=== PATIENT | male | born 1945 | race Caucasian/White ===

== ENCOUNTER → 2016-09-25 | Outpatient (CLI) | payer MEDICARE, OTHER ==
[~2016-09-25] MED LIST: ASPI-482 PO; CONTRAST GIVEN MC PRN; IOHEXOL 240 MG/ML 50ML VIAL. PO ONE; IOHEXOL 300 MG/ML 75 ML VIAL IV ONE
[2016-09-25 09:16] LABS: CREATININE 1.1 mg/dL (0.7-1.3); GFR 65.8
--- NOTE | 2016-09-25 17:58 | RAD ---
CT ABDOMEN AND PELVIS WITH IV CONTRAST History: UMBILICAL HERNIA. Comparison: CT chest dated 02/24/2010. Technique: After administration of oral and intravenous contrast, helical CT of the abdomen and pelvis was performed from the lung bases through the ischial tuberosities. Axial and coronal reconstructions were obtained. 75 mL of Omnipaque 350 were used. Abdomen Findings: The visualized lung bases are clear. Coronary artery calcifications. The liver, spleen, pancreas, gallbladder, and bilateral adrenal glands are normal. Subcentimeter hypoattenuating right renal lesion is too small to characterize but statistically likely represents a simple renal cyst. Bilateral kidneys otherwise enhance symmetrically. There is no focal renal mass. There is no hydronephrosis. Visualized loops of large and small bowel are normal. There is no evidence of bowel obstruction. Appendix is normal in caliber. There is no free fluid. There is no abdominal or retroperitoneal adenopathy. Moderate atherosclerosis of the normal caliber abdominal aorta and its branches. Small fat-containing umbilical hernia. 2.1 cm hernia mouth. Pelvis findings: Urinary bladder is normal. The prostate is enlarged measuring 5.2 cm. There is no free fluid. There is no pelvic or inguinal adenopathy. There is no acute bony abnormality. Moderate multilevel degenerative changes of the visualized spine. Grade 1 retrolisthesis of L5 on S1. IMPRESSION: 1. Small fat-containing umbilical hernia. 2. Subcentimeter hypoattenuating right renal lesion is too small to characterize but statistically likely represents a simple renal cyst. 3. Prostatomegaly. PQRS Compliance Statement: One or more of the following individualized dose reduction techniques were utilized for this examination: 1. Automated exposure control 2. Adjustment of the mA and/or kV according to patient size 3. Use of iterative reconstruction technique
== END | disposition home or self-care (01) ==
LOC: CT 08:10
PROVIDERS: ATTEND Surgery
DX: N40.0 Benign prostatic hyperplasia without lower urinary tract symptoms (principal)
CPT/HCPCS: 36415; 74177; 82565; Q9966; Q9967

== ENCOUNTER → 2016-10-12 | Outpatient (CLI) | payer MEDICARE, OTHER ==
[~2016-10-12] MED LIST changes: +ASPI-493 PO; +ATEN50TA PO; +CALC500T54 PO; +CHOL100013 PO; +CHOL10003 PO; -CONTRAST GIVEN MC PRN; +CYAN10005 PO; +FINA5TAB4 PO; +IBUP100O24 PO; -IOHEXOL 240 MG/ML 50ML VIAL. PO ONE; -IOHEXOL 300 MG/ML 75 ML VIAL IV ONE; +LORA10TA3 PO; +OMEG-113 PO; +OMEP20CA9 PO; +OXYC-323 PO; +TRIA10.8 NS
--- NOTE | 2016-10-12 12:10 | EKG ---
[facility] [address] [place] [address] Test Date: 2016-10-12 Test Time: 11:50:05 Pat Name: CORI DEL CASTILLO Department: Room: Gender: M [employer]: BUZZ : 1945 Requested By: ROSANA CAMEJO Order Number: [id number] Reading MD: Emanuel Brady Measurements Intervals [place] Rate: 58 P: 39 CA: 222 QRS: 2 QRSD: 86 T: 34 QT: 400 QTc: 396 Interpretive Statements SINUS RHYTHM PROLONGED CA INTERVAL ABNORMAL ECG RI6.01 No previous ECG available for comparison Electronically Signed On 10-16-2016 8:53:15 CDT by Emanuel Brady
== END | disposition home or self-care (01) ==
LOC: SURGPAT 10:26
PROVIDERS: ATTEND Surgery
DX: Z01.818 Encounter for other preprocedural examination (principal); K43.9 Ventral hernia without obstruction or gangrene; R94.31 Abnormal electrocardiogram [ECG] [EKG]
CPT/HCPCS: 93005

== ENCOUNTER → 2016-10-17 | Outpatient (CLI) | payer MEDICARE, OTHER ==
--- NOTE | 2016-10-17 09:16 | RAD ---
Chest radiograph 10/17/2016 at 0854 hours Indication: Ventral hernia repair Comparison: Chest radiograph 05/16/2005 Technique: Single frontal view of the chest is provided. Findings: Cardiomediastinal silhouette is borderline enlarged, stable. No pleural effusions, pulmonary vascular congestion or pneumothorax. There is subsegmental atelectasis at the left lung base. Osseous structures are normal. Impression: There is subsegmental atelectasis at the left lung base. Otherwise, the lungs are clear.
== END | disposition home or self-care (01) ==
LOC: RAD 08:27
PROVIDERS: ATTEND Surgery
DX: Z01.818 Encounter for other preprocedural examination (principal); K44.9 Diaphragmatic hernia without obstruction or gangrene; J98.11 Atelectasis
CPT/HCPCS: 71020

== ENCOUNTER 2016-10-19 06:29 | Day surgery (SDC) | payer MEDICARE, OTHER ==
[~2016-10-19] VITALS: Ht 172.7 cm; Wt 102.5 kg
[~2016-10-19 06:29] MED LIST changes: -OXYC-323 PO
[2016-10-19] MEDS ORDERED: ONDANSETRON PF 4 MG/2 ML VIAL. IV PRN (07:00)
[2016-10-19] MEDS ORDERED: fentaNYL PF VIAL 100 MCG/2 ML VIAL IV PRN ×2 (07:00)
[2016-10-19] MEDS ORDERED: IV RINGERS,LACTATED 1000ML 1,000 ML IV SCH (07:00)
[2016-10-19] MEDS ORDERED: HYDROmorphone 2 MG/ML VIAL IV PRN (07:00)
[2016-10-19] MEDS ORDERED: PROCHLORPERAZINE 10 MG/2 ML VIAL. IV PRN (07:00)
[2016-10-19] MEDS ORDERED: LIDOCAINE 1% 1 ML SYRINGE. ID PRN (07:00)
[2016-10-19] MEDS ORDERED: MORPHINE SULFATE 4 MG/ML DISP.SYRIN. IV PRN (07:00)
[2016-10-19] MEDS ORDERED: BUPIVAC MPF-EPI 0.5%-1:200000 10 ML VIAL. ONE ×2 (07:02→09:49)
[2016-10-19] MEDS ORDERED: DESFLURANE 61 TO 120 MINUTES IH ONE (07:42)
[2016-10-19] MEDS ORDERED: ROCURONIUM 100 MG/10 ML VIAL. ONE (07:43)
[2016-10-19] MEDS ORDERED: ONDANSETRON PF 4 MG/2 ML VIAL. ONE (07:43)
[2016-10-19] MEDS ORDERED: PHENYLEPHRINE 10 MG/ML VIAL. ONE (07:43)
[2016-10-19] MEDS ORDERED: GLYCOPYRROLATE 1 MG/5 ML VIAL. ONE (07:43)
[2016-10-19] MEDS ORDERED: fentaNYL PF VIAL 100 MCG/2 ML VIAL ONE ×2 (07:43→09:39)
[2016-10-19] MEDS ORDERED: DEXAMETHASONE SOD PHOS 20 MG/5 ML VIAL. ONE (07:43)
[2016-10-19] MEDS ORDERED: PROPOFOL 20 ML IV ONE (07:43)
[2016-10-19] MEDS ORDERED: LIDOCAINE 2% PF Vial for OR 5 ML VIAL. ONE (07:44)
[2016-10-19] MEDS ORDERED: 0.9 % SODIUM CHLORIDE 50 ML VIAL. IJ ONE (07:44)
[2016-10-19] MEDS ORDERED: NEOSTIGMINE 10 MG/10 ML VIAL. ONE (07:47)
--- NOTE | 2016-10-19 08:20 | PDOC ---
Provider Note Provider Note discussed his codeine allergy. he said it gave him nausea, hallucinations, insomnia. these are side effects, not true allergic reactions. he doesn't recall ever taking oxycodone/percocet. will prescribe percocet post op. ROSANA CAMEJO MD Oct 19, 2016 08:20
[2016-10-19] MEDS ORDERED: OXYC-323 PO (08:22)
--- NOTE | 2016-10-19 10:35 | PDOC ---
BRIEF OPERATIVE NOTE Pre-Op Diagnosis ventral hernia ventral hernia repair with mesh no specimen k carmela smalls ebl 10 ivf 1200 mayco well to rr stable. ROSANA CAMEJO MD Oct 19, 2016 10:35
--- NOTE | 2016-10-19 10:49 | OP ---
DATE OF SURGERY: 10/19/2016 PREOPERATIVE DIAGNOSIS: Ventral hernia. POSTOPERATIVE DIAGNOSIS: Ventral hernia. PROCEDURE: Ventral hernia repair with mesh. SURGEON: Rosana Camejo M.D. ANESTHESIA: General. ESTIMATED BLOOD LOSS: 10 mL. INTRAVENOUS FLUIDS: 1200 mL. SPECIMENS OBTAINED: None. INDICATIONS: The patient is a 71-year-old male who has severe diastasis recti in the epigastric region as well as a ventral hernia located just above his umbilicus. He is here for repair. FINDINGS: He had one primary hernia above the level of the umbilicus measuring approximately 3 x 4 cm. Just above that with a fascial bridge, that was only 1-2 mm, was a separate smaller hernia. The fascial bridge was divided. Ultimately after clearing back the fascia to get tissue, his hernia defect measured 4 x 4 cm. Specifically in the midline portion, his fascia is severely thinned and affected by diastasis recti. An 11.4 x 11.[address] hernia patch was then used to close the hernia defect. PROCEDURE IN DETAIL: After informed consent was obtained, the patient was taken to the operating room and placed in the supine position. After adequate induction of general anesthesia, he was prepped and draped in usual sterile fashion. A supraumbilical incision was made with a scalpel and extended down to the left of the umbilicus. This was extended down to the subcutaneous fat with cautery. The hernia sac was encountered. It was dissected out circumferentially. The hernia sac contained preperitoneal fat. The undersurface of the fascia was inspected. There was a small hernia that was above the primary hernia. The fascial bridge was small and the fascial bridge was divided with cautery. The preperitoneal space was then cleared back circumferentially for a distance of about 5 cm circumferentially, so the mesh could be placed in the preperitoneal space. A mesh that measured 11.4 x 11.4 cm was brought onto the field and placed in the preperitoneal space through the hernia defect. The hernia defect measured approximately 4 x [address] hernia patch was secured with U sutures using multiple 0 Prolene sutures circumferentially. The fascia was then closed over the hernia patch after the area was irrigated. There was approximately 4 cm of overlap between the fascia and the mesh circumferentially once the mesh was secured in place. Suman's fascia was approximated with 3-0 Vicryl in a running fashion. Skin was closed with 4-0 Monocryl in subcuticular fashion. Local was injected. Sterile dressings were placed. He tolerated the procedure well. There were no apparent complications. He was then transferred in stable condition to the recovery room. ROSANA CAMEJO MD DR: ALESSANDRA/dung JOB#: [id number] / [id number] ERICK Espinoza
[2016-10-19] MEDS ORDERED: oxyCODONE/APAP 5/325 1 TAB TABLET PO ONE (11:30)
[2016-10-19 12:10] VITALS: BP 137/64
== END 2016-10-19 11:35 | disposition home or self-care (01) ==
LOC: SURG 06:29
PROVIDERS: ATTEND Surgery
DX: K43.9 Ventral hernia without obstruction or gangrene (principal); E78.00 Pure hypercholesterolemia, unspecified; I10 Essential (primary) hypertension; E66.9 Obesity, unspecified; Z68.45 Body mass index [BMI] 70 or greater, adult; Z86.39 Personal history of other endocrine, nutritional and metabolic disease; Z72.89 Other problems related to lifestyle; Z88.6 Allergy status to analgesic agent; Z88.1 Allergy status to other antibiotic agents; Z91.040 Latex allergy status; Z91.048 Other nonmedicinal substance allergy status
CPT/HCPCS: 49560; 49568; A4215; C1781; J0690; J1100; J2405; J2704; J2710; J3010; J3490; J7120; J2001